=== PATIENT | female | born 1965 | race Asian ===

== ENCOUNTER 2017-05-24 10:49 | Emergency (ER) | payer OTHER, BC ==
[2017-05-24 11:14] VITALS: BP 144/92; PULSE 71; TEMP 98; BMI 29.2
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
--- NOTE | 2017-05-28 09:57 | EKG ---
Test Reason : Blood Pressure : / mmHG Vent. Rate : 072 BPM Atrial Rate : 072 BPM P-R Int : 144 ms QRS Dur : 088 ms QT Int : 380 ms P-R-T Axes : 026 -09 012 degrees QTc Int : 416 ms NORMAL SINUS RHYTHM NO PREVIOUS ECGS AVAILABLE Confirmed by JEANMARIE GRACE MD ([id number]) on 05/28/2017 9:57:01 AM Referred By: Confirmed By:JEANMARIE GRACE MD
== END 2017-05-24 11:58 | disposition home or self-care (01) ==
LOC: JERFT 10:49
DX: Z04.1 Encounter for examination and observation following transport accident (principal); V53.6XXA Passenger in pick-up truck or van injured in collision with car, pick-up truck or van in traffic accident, initial encounter; Y92.488 Other paved roadways as the place of occurrence of the external cause; Y93.89 Activity, other specified
CPT/HCPCS: 93005; 93010; 99281-25